=== PATIENT | female | born 1965 | race African-American/Black ===

== ENCOUNTER 2024-01-26 01:56 | Emergency (ER) | payer MEDICAID, OTHER ==
[~2024-01-26] VITALS: Ht 170.2 cm; Wt 100.0 kg
[2024-01-26 02:00] VITALS: TEMP 98.6; O2SAT 100
[2024-01-26 03:38] LABS: ALANINE AMINOTRANSFERASE < 7 IU/L (10-49); ALBUMIN 4.3 g/dL (3.2-4.8); ASPARTATE AMINOTRANSFERASE 19 IU/L (<34); BILIRUBIN TOTAL 0.3 mg/dL (0.1-1.0); CALCIUM 9.4 mg/dL (8.7-10.4); CARBON DIOXIDE 21 mEq/L (21-32); CHLORIDE 103 mEq/L (98-107); CREATININE 1.6 mg/dL (0.6-1.0); GLUCOSE 108 mg/dL (70-105); POTASSIUM 3.9 mEq/L (3.5-5.1); PROTEIN TOTAL 7.4 g/dL (6.0-8.3); SODIUM 135 mEq/L (136-145); TROPONIN I HIGH SENSITIVITY 7 ng/L (3.0-34); UREA NITROGEN BLOOD 25 mg/dL (9-23)
[2024-01-26 05:12] LABS: BASOPHILS % 0.6 % (0.0-2.0); DIFFERENTIAL COMMENT 0; EOSINOPHILS % 0.3 % (0.0-5.0); HEMATOCRIT. 35.3 % (36.0-48.0); HEMOGLOBIN. 10.8 g/dL (12.0-16.0); LYMPHOCYTES % 30.3 % (20.0-50.0); MEAN CORPUSCULAR HEMOGLOBIN 22.1 pg (28.0-32.0); MEAN CORPUSCULAR HGB CONC 30.7 g/dL (31.0-37.0); MEAN CORPUSCULAR VOLUME 72.1 fL (81.0-99.0); MEAN PLATELET VOLUME 8.6 fl (7.4-10.4); MONOCYTES % 8.3 % (2.0-8.0); NEUTROPHILS % 60.5 % (40.0-76.0); PLATELET 328 x1000/uL (130-400); WHITE BLOOD COUNT 7.3 x1000/uL (4.5-11.0)
[2024-01-26 05:17] VITALS: BP 112/46; PULSE 65; RESP 18
[2024-01-26 05:36] LABS: TROPONIN I HIGH SENSITIVITY 7 ng/L (3.0-34)
== END 2024-01-26 05:31 | disposition home or self-care (01) ==
LOC: ER 01:56 → EDBD 01:56 → ER 05:31
DX: H53.129 Transient visual loss, unspecified eye (principal); I10 Essential (primary) hypertension; R07.89 Other chest pain; R41.82 Altered mental status, unspecified
CPT/HCPCS: 80053; 83880; 85025; 84484; 36415; 71045; 70450; 93005; 99285; Z7610

== ENCOUNTER 2024-02-26 23:45 | Emergency (ER) | payer MEDICAID, OTHER ==
[~2024-02-26] VITALS: Ht 170.2 cm; Wt 114.6 kg
[2024-02-27 01:16] VITALS: BP 139/64; PULSE 65; RESP 18; O2SAT 99
[2024-02-27 03:00] VITALS: TEMP 97.4
[2024-02-27] MEDS: ACETAMINOPHEN 325MG TABLET PO ONE (03:00)
== END 2024-02-27 05:01 | disposition home or self-care (01) ==
LOC: ER 02-27 00:06
DX: M79.672 Pain in left foot (principal); I10 Essential (primary) hypertension
CPT/HCPCS: 73630; 99283

== ENCOUNTER 2024-02-29 21:51 | Emergency (ER) | payer MEDICAID ==
[~2024-02-29] VITALS: Ht 175.3 cm; Wt 82.0 kg
[2024-02-29 21:54] VITALS: TEMP 98.6; O2SAT 100
[2024-02-29] MEDS ORDERED: HYDROCODONE/ACETAMINOPHEN 5/325MG TABLET PO STA (22:43)
[2024-03-01] MEDS ORDERED: HYDROCODONE/ACETAMINOPHEN 5/325MG TABLET PO NR (01:15)
[2024-03-01] MEDS ORDERED: T3 PO (02:14)
[2024-03-01] MEDS: ACETAMINOPHEN WITH CODEINE 300/30MG TABLET PO STA (02:29)
[2024-03-01 02:35] VITALS: BP 127/54; PULSE 62; RESP 16
== END 2024-03-01 03:35 | disposition home or self-care (01) ==
LOC: ER 21:51
DX: S00.93XA Contusion of unspecified part of head, initial encounter (principal); S16.1XXA Strain of muscle, fascia and tendon at neck level, initial encounter; M25.572 Pain in left ankle and joints of left foot; M25.512 Pain in left shoulder; R07.89 Other chest pain; V49.49XA Driver injured in collision with other motor vehicles in traffic accident, initial encounter; Y93.89 Activity, other specified; Y92.89 Other specified places as the place of occurrence of the external cause; Y99.8 Other external cause status
CPT/HCPCS: 71045; 73030; 73610; 73630; 70450; 99284; Z7610